=== PATIENT | male | born 2000 | race Asian ===

== ENCOUNTER 2020-07-22 20:30 | Emergency (ER) | payer SELFPAY ==
[~2020-07-22] VITALS: Ht 180.3 cm; Wt 86.2 kg
[2020-07-22 21:27] VITALS: BP 120/81
== END 2020-07-22 22:46 | disposition home or self-care (01) ==
LOC: ER 20:37
DX: S60.111A Contusion of right thumb with damage to nail, initial encounter (principal); W23.0XXA Caught, crushed, jammed, or pinched between moving objects, initial encounter; Y93.89 Activity, other specified; Y92.89 Other specified places as the place of occurrence of the external cause; Y99.8 Other external cause status
CPT/HCPCS: 11740; 73140; 99284; A6403